=== PATIENT | female | born 1950 | race Caucasian/White ===

== ENCOUNTER 2023-01-31 00:27 | Emergency (ER) | payer OTHER ==
[~2023-01-31] VITALS: Ht 157.5 cm; Wt 77.1 kg
[2023-01-31] MEDS ORDERED: SIMVASTATIN5 MG PO (00:47)
[2023-01-31] MEDS ORDERED: CLONAZEPAM0.25 MG PO (00:47)
[2023-01-31] MEDS ORDERED: ACID CONTROLLER10 MG PO (00:47)
[2023-01-31] MEDS ORDERED: MELATONIN10 MG PO (00:48)
[2023-01-31] MEDS ORDERED: LEVO-T25 MCG PO (00:48)
[2023-01-31] MEDS ORDERED: AZELASTINE137 MCG/0. NASAL (00:48)
[2023-01-31] MEDS ORDERED: KETO10TA2 PO (06:23)
[2023-01-31] MEDS ORDERED: NORFLEX100MG PO (06:23)
== END 2023-01-31 06:36 ==
LOC: ER 00:27
DX: M54.2 Cervicalgia (principal); R51.9 Headache, unspecified; Z88.8 Allergy status to other drugs, medicaments and biological substances; E03.9 Hypothyroidism, unspecified
CPT/HCPCS: 70450; 72040; 96372; 99284; J1885; J2250